=== PATIENT | female | born 1995 | race Caucasian/White ===

== ENCOUNTER → 2024-04-16 13:01 | Outpatient (REF) | payer BC, OTHER, SELFPAY | LOC: PNTC 13:01 | PROVIDERS: ATTENDING PHYSICIAN Obstetrics & Gynecology | DX: O36.60X0 Maternal care for excessive fetal growth, unspecified trimester, not applicable or unspecified (principal); U07.1 COVID-19; O98.519 Other viral diseases complicating pregnancy, unspecified trimester | CPT/HCPCS: 76816 ==

== ENCOUNTER 2024-04-17 14:03 | Observation (INO) | payer BC, OTHER, SELFPAY ==
[2024-04-17 14:38] VITALS: BP 141/89; BMI 32.3
[2024-04-17 14:51] LABS: Hematocrit 32.1 % (37.0-47.0); Hemoglobin 11.4 g/dL (12.0-16.0); Mean Corp Hgb Conc. 35.5 g/dL (33.0-37.0); Mean Corpuscular Hgb 32.6 pg (27.0-31.0); Mean Corpuscular Volume 91.7 fL (81.0-99.0); Mean Platelet Volume 10.1 fL (7.4-10.4); Platelet Count 180 10^3/uL (130-400); Red Cell Dist. Width 12.3 % (11.5-14.5); White Blood Cell Count 11.6 10^3/uL (4.8-10.8)
[2024-04-17 14:59] LABS: ALT (SGPT) 13 U/L (0-35); AST (SGOT) 19 U/L (14-36); Albumin 3.7 g/dl (3.5-5.0); Alkaline Phosphatase 134 U/L (38-126); Blood Urea Nitrogen 10 mg/dl (7-17); Calcium 9.4 mg/dl (8.4-10.2); Carbon Dioxide 16 mmol/L (22-30); Chloride 109 mmol/L (98-107); Estimated Creatinine Clearance > 125 ml/min; Glucose 75 mg/dl (70-99); Sodium 137 mmol/L (135-145); Total Bilirubin 0.2 mg/dl (0.2-1.3); Total Protein 6.5 g/dl (6.3-8.2); eGFR > 60.00
[2024-04-17 15:10] LABS: Urine Albumin Negative (Neg - Trace); Urine Bilirubin Negative (Negative); Urine Character Clear (Clear); Urine Color Yellow; Urine Glucose Negative (Negative); Urine Ketone Negative (Negative); Urine Leukocyte 2+ (Negative); Urine Nitrite Negative (Negative); Urine Occult Blood Negative (Negative); Urine Urobilinogen Negative (Neg - 1+)
[2024-04-17 15:22] LABS: Urine Red Blood Cell 0-2 /HPF (0-2)
[2024-04-17 15:23] LABS: Urine Bacteria Few (Negative); Urine Squamous Cell 26-30 /LPF (Few); Urine White Cell 26-30 /HPF (0-5)
[2024-04-17 15:29] LABS: Protein/creatinine Ratio 0.4; Urine Protein 14 mg/dl
== END 2024-04-17 16:32 | disposition home or self-care (01) ==
LOC: LDRP 14:03
PROVIDERS: ADMITTING PHYSICIAN Obstetrics & Gynecology; ATTENDING PHYSICIAN Obstetrics & Gynecology
DX: O14.03 Mild to moderate pre-eclampsia, third trimester (principal); Z3A.35 35 weeks gestation of pregnancy; O32.1XX0 Maternal care for breech presentation, not applicable or unspecified; Z88.2 Allergy status to sulfonamides
CPT/HCPCS: 59025; 80053; 81003; 81015; 82570; 84156; 85027; G0378

== ENCOUNTER 2024-04-19 10:52 | Observation (INO) | payer BC, OTHER, SELFPAY ==
[2024-04-19 11:04] VITALS: BP 158/91; BMI 32.3
[2024-04-19] MEDS: TYLENOL 1000 MG PO (12:07)
[2024-04-19 12:13] LABS: Hematocrit 30.2 % (37.0-47.0); Hemoglobin 10.8 g/dL (12.0-16.0); Mean Corp Hgb Conc. 35.8 g/dL (33.0-37.0); Mean Corpuscular Hgb 33.1 pg (27.0-31.0); Mean Corpuscular Volume 92.6 fL (81.0-99.0); Mean Platelet Volume 10.1 fL (7.4-10.4); Platelet Count 177 10^3/uL (130-400); Red Blood Cell Count 3.26 10^6/uL (4.20-5.40); Red Cell Dist. Width 12.2 % (11.5-14.5); White Blood Cell Count 10.7 10^3/uL (4.8-10.8)
[2024-04-19 12:24] LABS: ALT (SGPT) 12 U/L (0-35); AST (SGOT) 18 U/L (14-36); Albumin 3.6 g/dl (3.5-5.0); Alkaline Phosphatase 124 U/L (38-126); Blood Urea Nitrogen 10 mg/dl (7-17); Calcium 9.5 mg/dl (8.4-10.2); Carbon Dioxide 19 mmol/L (22-30); Chloride 107 mmol/L (98-107); Estimated Creatinine Clearance > 125 ml/min; Glucose 102 mg/dl (70-99); Potassium 4.1 mmol/L (3.5-5.1); Sodium 137 mmol/L (135-145); Total Bilirubin 0.2 mg/dl (0.2-1.3); Total Protein 6.2 g/dl (6.3-8.2); eGFR > 60.00
== END 2024-04-19 15:41 | disposition home or self-care (01) ==
LOC: LDRP 10:52
PROVIDERS: ADMITTING PHYSICIAN Student in an Organized Health Care Education/Training Program
DX: O14.03 Mild to moderate pre-eclampsia, third trimester (principal); Z3A.36 36 weeks gestation of pregnancy; O99.343 Other mental disorders complicating pregnancy, third trimester; F41.9 Anxiety disorder, unspecified; D35.2 Benign neoplasm of pituitary gland; J45.909 Unspecified asthma, uncomplicated; L40.9 Psoriasis, unspecified; Z88.2 Allergy status to sulfonamides; Z91.410 Personal history of adult physical and sexual abuse; Z86.16 Personal history of COVID-19; Z14.1 Cystic fibrosis carrier
CPT/HCPCS: 59025; 80053; 85027; G0378

== ENCOUNTER → 2024-04-25 11:17 | Outpatient (REF) | payer BC, OTHER, SELFPAY | LOC: PNTC 11:17 | PROVIDERS: ATTENDING PHYSICIAN Student in an Organized Health Care Education/Training Program | DX: O13.3 Gestational [pregnancy-induced] hypertension without significant proteinuria, third trimester (principal) | CPT/HCPCS: 59025; 76815 ==

== ENCOUNTER 2024-04-26 10:42 | Inpatient (IN) | payer BC, OTHER, SELFPAY ==
[2024-04-26 11:28] VITALS: BP 146/90; BMI 32.3
[2024-04-26] MEDS: LR 1000 IV (11:45)
[2024-04-26 12:12] LABS: Hematocrit 33.1 % (37.0-47.0); Hemoglobin 12.1 g/dL (12.0-16.0); Mean Corp Hgb Conc. 36.6 g/dL (33.0-37.0); Mean Corpuscular Hgb 33.5 pg (27.0-31.0); Mean Corpuscular Volume 91.7 fL (81.0-99.0); Mean Platelet Volume 10.1 fL (7.4-10.4); Platelet Count 181 10^3/uL (130-400); Red Blood Cell Count 3.61 10^6/uL (4.20-5.40); Red Cell Dist. Width 12.4 % (11.5-14.5); White Blood Cell Count 10.9 10^3/uL (4.8-10.8)
[2024-04-26 12:32] LABS: ALT (SGPT) 13 U/L (0-35); AST (SGOT) 19 U/L (14-36); Albumin 3.8 g/dl (3.5-5.0); Alkaline Phosphatase 143 U/L (38-126); Blood Urea Nitrogen 8 mg/dl (7-17); Calcium 9.3 mg/dl (8.4-10.2); Carbon Dioxide 17 mmol/L (22-30); Chloride 111 mmol/L (98-107); Estimated Creatinine Clearance > 125 ml/min; Glucose 80 mg/dl (70-99); Potassium 4.2 mmol/L (3.5-5.1); Sodium 138 mmol/L (135-145); Total Bilirubin 0.3 mg/dl (0.2-1.3); Total Protein 6.6 g/dl (6.3-8.2); Uric Acid 5.8 mg/dl (2.5-6.2); eGFR > 60.00
[2024-04-26 12:49] LABS: Urine Albumin Trace (Neg - Trace); Urine Bilirubin Negative (Negative); Urine Character Clear (Clear); Urine Color Yellow; Urine Glucose Negative (Negative); Urine Ketone Negative (Negative); Urine Leukocyte Trace (Negative); Urine Nitrite Negative (Negative); Urine Occult Blood Negative (Negative); Urine Urobilinogen Negative (Neg - 1+)
[2024-04-26] MEDS: CYTOTEC 50 MICROGRAM PO ×2 (13:33→16:59)
[2024-04-26 13:48] LABS: Urine Bacteria Few (Negative); Urine Red Blood Cell 0-2 /HPF (0-2); Urine Squamous Cell >30 /LPF (Few)
[2024-04-26 15:35] LABS: Protein/creatinine Ratio 0.1; Urine Protein 14 mg/dl
[2024-04-26] MEDS: CYTOTEC PO (23:57)
[2024-04-27] MEDS: CYTOTEC 50 MICROGRAM PO ×2 (00:18→09:15)
[2024-04-27] MEDS: CYTOTEC PO ×2 (04:30→07:51)
[2024-04-27] MEDS: FENTANYL/BUPIVACAINE 100 EPIDURAL ×3 (05:59→22:10)
[2024-04-27] MEDS: SUBLIMAZE 100 MCG EPIDURAL (05:59)
[2024-04-27] MEDS: PENICILLIN 110 UNITS IV (08:05)
[2024-04-27] MEDS: PENICILLIN 55 UNITS IV ×4 (12:14→23:59)
[2024-04-27] MEDS: PITOCIN 30 UNITS/NSS 500 ML IV (14:01)
[2024-04-27] MEDS: TUMS CHEWABLE TABLET 200 MG PO (17:42)
[2024-04-28] MEDS: TYLENOL 1000 MG PO (01:07)
[2024-04-28] MEDS: ZITHROMAX INFUSION 250 IV (01:08)
[2024-04-28] MEDS: ANCEF 10 IV (01:08)
[2024-04-28 01:56] LABS: B.E. Cord ABG -3.1 mMOL/L; Cord ABG Comment CORD BLOOD; HCO3 Cord ABG 21.2 mmol/L; O2 Saturation % Cord ABG 73.7 %; PCO2 Cord ABG 35 mmHg; PO2 Cord ABG 33 mmHg; pH Cord ABG 7.39
[2024-04-28 01:58] LABS: Cord ABG Comment CORD BLOOD
[2024-04-28 02:00] LABS: B.E. Cord ABG -4.8 mMOL/L; HCO3 Cord ABG 21.1 mmol/L; O2 Saturation % Cord ABG 66.9 %; PCO2 Cord ABG 41 mmHg; PO2 Cord ABG 31 mmHg; pH Cord ABG 7.32
--- NOTE | 2024-04-28 02:52 | OR.RPT ---
Operative Report
Operative Report
Preop diagnosis: IUP @37.3, preeclampsia without severe features, non-reassuring heart tones
Postop diagnosis: same
Procedure: primary low transverse section
Surgeon: Gómez
Anesthesia: epidural, Corwin
QBL: 550mL
Findings: Viable female infant, weighing 7lb 7oz, with Apgars 8/9. Loose nuchalx1. Normal appearing uterus, bilateral fallopian tubes and ovaries
Healy catheter: clear yellow before and after the procedure
Complications: none
Indication: Patient is a 29yo @37.3 who presented to Labor and Delivery on 04/26 for scheduled primary section for breech presentation. She has preeclampsia without severe features. On admission, fetus was found to be in cephalic
presentation and induction of labor was started with Cytotec. Her cervix at the start of induction was closed/thick/high. She received a total of 4 doses a Cytotec. After Cytotec, she was found to be 1/70/-3. A cook balloon was placed at 1345 on
04/27 with 60/60mL in uterine/vaginal balloons. Pitocin was started. She was on penicillin for GBS prophylaxis. After 6 hours, the cook balloon was in the vagina and she was found to be 5/70/-2. Artificial rupture of membranes was performed for clear
fluid. Following rupture, tachycardia noted and persisted despite position changes. Pitocin was turned off. There was resolution of tachycardia and Pitocin was turned back on and titrated. There was an intermittent category 2 tracing
with occasional variable deceleration. There were then recurrent variable decelerations and Pitocin was turned off. Cervical exam was 6/80/-2 and IUPC was placed. Amnioinfusion was started. There continued to be variable decelerations despite
amnioinfusion with periods of minimal variability. Primary section was recommended for non-reassuring heart tones. Risks, benefits and alternatives were discussed with the patient and all questions were answered. Consent was signed.
Anesthesia notified. 2g of Ancef and 500mg of azithromycin were ordered for antibiotic prophylaxis.
Procedure: Patient was taken to the operating room where epidural anesthesia was bolused and found to be adequate. 2g of Ancef and 500mg of Azithromycin were given for infection prophylaxis. The abdomen was prepped with ChloraPrep. The patient was
draped in the normal sterile fashion. She was placed in the dorsal supine position with a left lateral tilt. A Pfannenstiel incision was made with a 10 blade and carried down to the fascia with a scalpel. Hemostasis achieved with Bovie. The fascia
was incised and dissected laterally with Cheatham scissors. The superior aspect of the fascia was grasped with Umu clamps. The underlying rectus fascia was sharply dissected with the Cheatham scissors. In a similar fashion the inferior aspect of the
fascia was elevated with Umu clamps and the rectus muscle was dissected off with Cheatham scissors. The rectus muscles were down the midline to the level of the pubic symphysis with manual dissection. The peritoneum was bluntly entered and
extended with manual traction.
Leo retractor and bladder blade were placed revealing good visualization of the bladder. The vesicouterine peritoneum was identified. A thin lower uterine segment was noted. The lower uterine segment was incised with a scalpel. Umbilical cord
and body noted with clear amniotic fluid at entry into the uterine cavity. The uterine incision was extended bluntly with lateral and upward traction.
The fetus was in cephalic presentation. The head was elevated out of the pelvis with special attention paid to avoid using the uterine incision as a fulcrum. Gentle fundal pressure was applied one the head was brought to the incision. The head
delivered and the rest of the delivered without difficulty. Delayed cord clamping was performed. The was handed off to the cardio clinician. Cord gases and cord blood was collected. IV oxytocin was started to facilitate uterine
contractions. The placenta was delivered with gentle traction and uterine fundal massage. The uterus was exteriorized. Allis clamps were placed at the apices of the hysterotomy. The inside of the uterus was wiped with a lap sponge to assure complete
removal of placental membranes. Fundal massage was performed and uterus noted to be firm. The uterine incision was closed with 0 Vicryl in a running locked fashion. A horizontal imbricating stitch was done on the hysterotomy. The hysterotomy was
inspected and noted to be hemostatic. The uterus was placed back in the abdomen. Blood clots and fluid were wiped out of the abdomen and pelvis with moist laparotomy sponges. The hysterotomy was examined again and noted to be hemostatic.
The rectus muscles were inspected and noted to be hemostatic. The fascial layer was closed in a running continuous fashion using 0 Vicryl. The subcutaneous tissue was copiously irrigated and any small bleeding vessels were cauterized with Bovie
cautery. The subcutaneous tissue was reapproximated in a running continuous fashion with 2-0 Plain. The skin was closed with 4-0 Vicryl in a subcuticular fashion. There a gap in the skin edges at the left side of the incision. A single interrupted
subcuticular stitch with 4-0 monocryl was used to reapproximate the skin edges. The incision was covered with skin glue. The patient tolerated the procedure well. All sponge and instrument counts were correct times two. The patient was taken to the
recovery room in stable condition.
[2024-04-28] MEDS: TORADOL 15 MG IV ×4 (03:15→21:19)
[2024-04-28] MEDS: ZYRTEC 10 MG PO (08:50)
[2024-04-28] MEDS: PRENATAL PLUS 1 TABLET PO (08:50)
--- NOTE | 2024-04-28 15:18 | W.PN.ANS.POP ---
Anesthesia Post Operative
- Anesthesia Post Op Note
Vital Signs Stable-See Nursing Note: Yes
Airway Patent: Yes
Adequate Pain Control: Yes
Change in Mental Status: No
Current Postoperative Nausea & Vomiting: No
Anesthesia Complications: No
General Anesthetic Recall: No
Unplanned Admission: No
Post Op Hydration Adequate: Yes
[2024-04-28] MEDS: TYLENOL 650 MG PO ×2 (15:49→21:18)
[2024-04-29] MEDS: MOTRIN 600 MG PO ×3 (03:21→15:47)
[2024-04-29] MEDS: TORADOL IV (03:25)
[2024-04-29] MEDS: TYLENOL 650 MG PO ×3 (05:10→15:47)
[2024-04-29 05:40] LABS: Hemoglobin 9.2 g/dL (12.0-16.0); Mean Corp Hgb Conc. 35.4 g/dL (33.0-37.0); Mean Corpuscular Hgb 33.1 pg (27.0-31.0); Mean Corpuscular Volume 93.5 fL (81.0-99.0); Mean Platelet Volume 10.3 fL (7.4-10.4); Platelet Count 155 10^3/uL (130-400); Red Blood Cell Count 2.78 10^6/uL (4.20-5.40); Red Cell Dist. Width 12.5 % (11.5-14.5); White Blood Cell Count 11.5 10^3/uL (4.8-10.8)
[2024-04-29] MEDS: FEOSOL 325 MG PO (07:59)
[2024-04-29] MEDS: PRENATAL PLUS 1 TABLET PO (07:59)
[2024-04-29] MEDS: ZYRTEC 10 MG PO (07:59)
[2024-04-29] MEDS: SENOKOT-S 1 TABLET PO (07:59)
[2024-04-29] MEDS: MYLICON 80 MG PO ×2 (15:55→21:02)
[2024-04-29] MEDS: PERCOCET 5/325 1 TABLET PO (19:25)
[2024-04-30] MEDS: PERCOCET 5/325 1 TABLET PO ×3 (01:00→15:24)
[2024-04-30] MEDS: SENOKOT-S 1 TABLET PO (08:53)
[2024-04-30] MEDS: MOTRIN 600 MG PO ×3 (08:53→20:26)
[2024-04-30] MEDS: MYLICON 80 MG PO (08:53)
[2024-04-30] MEDS: PRENATAL PLUS 1 TABLET PO (08:53)
[2024-04-30] MEDS: ZYRTEC 10 MG PO (08:53)
[2024-04-30] MEDS: FEOSOL 325 MG PO (08:53)
[2024-04-30 11:40] LABS: Syphilis/T. pallidum Ab Reflex Negative (Negative)
[2024-04-30] MEDS: PROCARDIA XL (EXTENDED RELEASE) 30 MG PO (16:44)
[2024-04-30 17:13] LABS: Hemoglobin 9.9 g/dL (12.0-16.0); Mean Corp Hgb Conc. 35.4 g/dL (33.0-37.0); Mean Corpuscular Volume 93.3 fL (81.0-99.0); Mean Platelet Volume 9.7 fL (7.4-10.4); Platelet Count 182 10^3/uL (130-400); Red Cell Dist. Width 12.5 % (11.5-14.5); White Blood Cell Count 9.5 10^3/uL (4.8-10.8)
[2024-04-30 17:27] LABS: ALT (SGPT) 13 U/L (0-35); AST (SGOT) 21 U/L (14-36); Albumin 3.1 g/dl (3.5-5.0); Alkaline Phosphatase 111 U/L (38-126); Blood Urea Nitrogen 11 mg/dl (7-17); Calcium 9.2 mg/dl (8.4-10.2); Carbon Dioxide 21 mmol/L (22-30); Chloride 108 mmol/L (98-107); Estimated Creatinine Clearance > 125 ml/min; Glucose 96 mg/dl (70-99); Potassium 3.8 mmol/L (3.5-5.1); Sodium 137 mmol/L (135-145); Total Bilirubin < 0.1 mg/dl (0.2-1.3); Total Protein 5.6 g/dl (6.3-8.2); eGFR > 60.00
[2024-04-30] MEDS: TYLENOL 650 MG PO (19:37)
[2024-04-30] MEDS: MAGNESIUM SULFATE 100 IV (22:07)
[2024-04-30] MEDS: LR 1000 IV (22:07)
[2024-04-30] MEDS: MAGNESIUM SULFATE 40 GRAM 1000 IV (22:29)
[2024-05-01] MEDS: TYLENOL 650 MG PO ×3 (00:42→18:27)
[2024-05-01] MEDS: MOTRIN 600 MG PO ×3 (04:29→18:28)
[2024-05-01] MEDS: FEOSOL 325 MG PO (08:28)
[2024-05-01] MEDS: PRENATAL PLUS 1 TABLET PO (08:28)
[2024-05-01] MEDS: ZYRTEC PO (08:29)
[2024-05-01] MEDS: SENOKOT-S 1 TABLET PO (08:29)
[2024-05-01] MEDS: TRANDATE 100 MG PO ×2 (09:22→14:21)
[2024-05-01] MEDS: TRANDATE 200 MG PO (19:33)
[2024-05-02] MEDS: TYLENOL 650 MG PO ×2 (00:44→07:57)
[2024-05-02] MEDS: MOTRIN 600 MG PO ×2 (00:45→07:58)
[2024-05-02] MEDS: PRENATAL PLUS 1 TABLET PO (07:58)
[2024-05-02] MEDS: FEOSOL 325 MG PO (08:00)
[2024-05-02] MEDS: TRANDATE 200 MG PO (08:01)
--- NOTE | 2024-05-02 08:22 | W.DS.TRANS ---
DC Summary - Frame Maker
-
Discharge Instructions:
Discharge Diagnosis/Procedures s/p primary low-transverse ; anemia,
asymptomatic; pre-eclampsia with severe features
Diet Regular
Activity No strenuous activity
Driving Restrictions No driving for 2 weeks
Bathing Restrictions OK to Shower
Instructions:
Stand-Alone Forms: LDRP Delivery
LDRP Hypertensive Disorders
Changes to Home Medications: No
Discharge Medications:
DC Medications w/original date entered in [facility] [employer]
cetirizine 10 mg tablet 10 mg PO DAILY Allergies 12/17/12
Vitamin 1 tab PO DAILY Supplement 04/17/24
acetaminophen 325 mg tablet 650 mg (2 x 325 mg) PO Q4HPRN PRN mild pain #0 tabs 05/01/24
ferrous sulfate 325 mg (65 mg iron) tablet (FeroSul) 325 mg PO DAILY #0 tabs 05/01/24
ibuprofen 600 mg tablet 600 mg PO Q6HPRN PRN cramps #60 tabs 05/01/24
labetalol 200 mg tablet 200 mg PO BID #90 tabs 05/01/24
sennosides 8.6 mg-docusate sodium 50 mg tablet 1 tab PO DAILYPRN PRN constipation #0 tabs 05/01/24
oxycodone 5 mg tablet 5 mg PO Q6H PRN severe pain #10 tabs 05/02/24
oxycodone 5 mg tablet 5 mg PO Q6H PRN severe pain #5 tabs 05/02/24
Home Medication Changes
Pending Results: Yes
Additional Pending Results:
placental pathology
Total time spent discharging patient (in min): 25
[2024-05-02] MEDS: ZYRTEC PO (08:55)
== END 2024-05-02 10:27 | disposition home or self-care (01) | DRG 788 ==
LOC: LDRP 10:42
PROVIDERS: Obstetrics & Gynecology; Student in an Organized Health Care Education/Training Program; ADMITTING PHYSICIAN Obstetrics & Gynecology
PROC: 0U7C7ZZ Dilation of Cervix, Via Natural or Artificial Opening (ICD-10-PCS; 2024-04-27)
PROC: 10907ZC Drainage of Amniotic Fluid, Therapeutic from Products of Conception, Via Natural or Artificial Opening (ICD-10-PCS; 2024-04-27)
PROC: 3E0P7VZ Introduction of Hormone into Female Reproductive, Via Natural or Artificial Opening (ICD-10-PCS; 2024-04-27)
PROC: 3E033VJ Introduction of Other Hormone into Peripheral Vein, Percutaneous Approach (ICD-10-PCS; 2024-04-27)
PROC: 10H07YZ Insertion of Other Device into Products of Conception, Via Natural or Artificial Opening (ICD-10-PCS; 2024-04-28)
PROC: 3E0E7GC Introduction of Other Therapeutic Substance into Products of Conception, Via Natural or Artificial Opening (ICD-10-PCS; 2024-04-28)
PROC: 10D00Z1 Extraction of Products of Conception, Low, Open Approach (ICD-10-PCS; 2024-04-28)
DX: O14.14 Severe pre-eclampsia complicating childbirth (principal); O32.1XX0 Maternal care for breech presentation, not applicable or unspecified; O75.0 Maternal distress during labor and delivery; Z3A.37 37 weeks gestation of pregnancy; Z37.0 Single live birth; Z82.49 Family history of ischemic heart disease and other diseases of the circulatory system; Z91.410 Personal history of adult physical and sexual abuse; O69.81X0 Labor and delivery complicated by cord around neck, without compression, not applicable or unspecified; O99.824 Streptococcus B carrier state complicating childbirth; O61.0 Failed medical induction of labor; Z14.1 Cystic fibrosis carrier
CPT/HCPCS: 88307; 36415; 80053; 81003; 81015; 82570; 82803; 84156; 84550; 85027; 86780; 86850; 86900; 86901

== ENCOUNTER → 2024-12-16 16:43 | Outpatient (REF) | payer OTHER, SELFPAY | LOC: RAD 16:43 | PROVIDERS: ATTENDING PHYSICIAN Obstetrics & Gynecology; FAMILY PHYSICIAN Internal Medicine | DX: O26.851 Spotting complicating pregnancy, first trimester (principal) | CPT/HCPCS: 76830; 76856 ==

== ENCOUNTER 2025-03-14 13:10 | Emergency (ER) | payer OTHER, SELFPAY ==
[2025-03-14] VITALS (7 sets, daily range): BP systolic 122–144; BP diastolic 72–100; BMI 35.2
[2025-03-14 13:53] LABS: Hematocrit 41.6 % (37.0-47.0); Hemoglobin 13.9 g/dL (12.0-16.0); Mean Corp Hgb Conc. 33.4 g/dL (33.0-37.0); Mean Corpuscular Volume 92.0 fL (81.0-99.0); Nucleated Red Blood Cells % 0 %; Platelet Count 233 10^3/uL (130-400); Red Cell Dist. Width 12.0 % (11.5-14.5)
[2025-03-14 14:07] LABS: ALT (SGPT) 17 U/L (0-35); AST (SGOT) 21 U/L (14-36); Albumin 4.3 g/dl (3.5-5.0); Alkaline Phosphatase 80 U/L (38-126); Blood Urea Nitrogen 12 mg/dl (7-17); Calcium 9.6 mg/dl (8.4-10.2); Carbon Dioxide 25 mmol/L (22-30); Chloride 105 mmol/L (98-107); Glucose 88 mg/dl (70-99); Potassium 4.1 mmol/L (3.5-5.1); Sodium 137 mmol/L (135-145); Total Protein 7.3 g/dl (6.3-8.2); eGFR > 60.00
[2025-03-14] MEDS: NSS 1000 IV (16:00)
[2025-03-14] MEDS: TYLENOL 650 MG PO (16:05)
[2025-03-14 16:36] LABS: HCG, Serum Qualitative Screen Positive
[2025-03-14 16:59] LABS: Urine Character Clear (Clear)
--- NOTE | 2025-03-14 17:07 | ED.GENMED ---
History of Present Illness
<Eliza Higgins PA-C - Last Filed: 03/15/25 11:45>
General
Chief Complaint: Blood Pressure Problem
Source: patient
Exam Limitations: none
Time Seen by Provider: 03/14/25 15:43
Nursing documentation reviewed up to this point in time: agreed with
History of Present Illness
History of Present Illness:
Patient is a at an estimated 11 weeks gestation who presents to the emergency department with concerns of elevated blood pressure and headache. Patient states that she woke up this morning feeling 'off' states she felt jittery and anxious.
While at work she developed a relatively severe headache. She describes it as a throbbing sensation throughout her head. She went to the nurse and was found to have significantly elevated blood pressures of 160/120. She contacted her [facility]
office who recommended evaluation in the emergency department.
Patient states prior to going to bed last night she felt like she had the flu describing extreme fatigue. She went to bed at 7:30 PM. Patient denies any associated fever or chills. She denies any nausea, vomiting, visual changes, dizziness. No
severe back pain, numbness/tingling or weakness in extremities.
Patient did have preeclampsia with her first , was diagnosed at 36 weeks.
She did have her first OB appointment last week for this however has not yet had an ultrasound.
Past History
<Eliza Higgins PA-C - Last Filed: 03/15/25 11:45>
Past History
ED Past Medical History: Asthma, GERD and Other (Migraines)
ED Past Surgical History: None
Social History
Tobacco: Non-smoker
Alcohol: Occasional
Drug: None
Personal: Single
Living: with family
Family History
Family History: Other (Mother with A. fib, father with MN, uncle with colon cancer, grandfather with pancreatitis)
Review of Systems
<Eliza Higgins PA-C - Last Filed: 03/15/25 11:45>
Review of Systems
Allergies reviewed?: Yes
All Other Systems: ROS reviewed and negative except as documented in HPI and ROS
Phy Exam
<Eliza Higgins PA-C - Last Filed: 03/15/25 11:45>
Physical Exam
Physical Exam:
Vitals: Hypertensive on arrival, improved by my assessment.
General: Patient is well appearing, no acute distress
Skin: Warm and dry, no rashes or lesions
Head: Normocephalic, atraumatic
Eyes: Sclera nonicteric. Pupils equal round reactive to light bilaterally. EOMs intact. No nystagmus.
Throat: Protecting airway
Neck: Normal ROM, no cervical spine tenderness, no meningismus
Cardiac: Regular rate and rhythm, no murmurs.
Pulm: Normal respiratory effort, no wheezes, rales, rhonchi heard on exam
Abdomen: Abdomen soft and nontender.
Extremities: No evidence of cyanosis or edema. Strength 5/5 in bilateral upper and lower extremities
Neuro: AAOx3. CN II-XII grossly intact. No focal neurologic deficits.
Psychiatric: Normal affect.
Course
<Eliza Higgins PA-C - Last Filed: 03/15/25 11:45>
Orders/Labs/Results
Orders:
Orders
03/14/25 13:37
Beta HCG Quantitative Urgent
Is this a screen?: Yes
Comment: ADD ON
Complete Blood Count/With Diff Urgent
Comprehensive Metabolic Panel Urgent
HCG, Serum Qualitative Screen Urgent
03/14/25 15:53
Add On- LAB Urgent
Tests Added?: hcg qualitative
0.9% Sodium Chloride 1000 ml [Nss] 1,000 ml IV BOLUS
Acetaminophen [Tylenol] 650 mg PO NOW STA
03/14/25 16:08
COVID-19 Antigen Urgent
Source: Nasal Swab
Influenza A+B Rapid Molecular Urgent
JESSICA Source: Nasal Swab
Specimen Description:
03/14/25 16:44
Add On- LAB Urgent
Tests Added?: hcg quantitative
03/14/25 16:48
Urinalysis Reflex To Culture Urgent
Date Specimen was Collected: 03/14/25
Time Specimen was Collected: 16:43
Urine Microscopic Reflex Cult Urgent
Urine Culture Urgent
JESSICA Source: U
Specimen Description:
Date Specimen was Collected: 03/14/25
Time Specimen was Collected: 16:43
03/14/25 17:57
CT Head W/o Iv Contrast Urgent
Comment:
Reason For Exam: Headache, HTN
US 1st Trimester Urgent
Comment:
Reason For Exam: Positive Hcg, HTN and severe FENTON
03/14/25 20:09
Amoxicillin 875 mg/Clav 125 mg [Augmentin 875 mg/125 mg] 1 tablet PO NOW STA
Abnormal Lab Results
03/14/25
16:48
Leukocyte Esterase Rfl 3+ A
(Negative)
Urine RBC 3-6 A /HPF
(0-2)
Urine WBC (Reflex) 26-30 A /HPF
(0-5)
Urine Bacteria (Reflex) Moderate A
(Negative)
03/14/25 13:37
03/14/25 13:37
Vital Signs
Initial and Last Documented VS:
Initial Vital Signs
Temp Pulse Resp BP Pulse Ox
98.9 F 94 16 144/100 98
03/14/25 13:24 03/14/25 13:24 03/14/25 13:24 03/14/25 13:24 03/14/25 13:24
Last Documented Vital Signs
Temp Pulse Resp BP Pulse Ox
98.9 F 87 21 122/79 99
03/14/25 13:24 03/14/25 20:15 03/14/25 20:15 03/14/25 20:00 03/14/25 18:00
<Mundo Singh MD - Last Filed: 03/14/25 19:39>
Orders/Labs/Results
Orders:
Orders
03/14/25 13:37
Beta HCG Quantitative Urgent
Is this a screen?: Yes
Comment: ADD ON
Complete Blood Count/With Diff Urgent
Comprehensive Metabolic Panel Urgent
HCG, Serum Qualitative Screen Urgent
03/14/25 15:53
Add On- LAB Urgent
Tests Added?: hcg qualitative
0.9% Sodium Chloride 1000 ml [Nss] 1,000 ml IV BOLUS
Acetaminophen [Tylenol] 650 mg PO NOW STA
03/14/25 16:08
COVID-19 Antigen Urgent
Source: Nasal Swab
Influenza A+B Rapid Molecular Urgent
JESSICA Source: Nasal Swab
Specimen Description:
03/14/25 16:44
Add On- LAB Urgent
Tests Added?: hcg quantitative
03/14/25 16:48
Urinalysis Reflex To Culture Urgent
Date Specimen was Collected: 03/14/25
Time Specimen was Collected: 16:43
Urine Microscopic Reflex Cult Urgent
Urine Culture Urgent
JESSICA Source: U
Specimen Description:
Date Specimen was Collected: 03/14/25
Time Specimen was Collected: 16:43
03/14/25 17:57
CT Head W/o Iv Contrast Urgent
Comment:
Reason For Exam: Headache, HTN
US 1st Trimester Urgent
Comment:
Reason For Exam: Positive Hcg, HTN and severe FENTON
03/14/25 20:09
Amoxicillin 875 mg/Clav 125 mg [Augmentin 875 mg/125 mg] 1 tablet PO NOW STA
Abnormal Lab Results
03/14/25
16:48
Leukocyte Esterase Rfl 3+ A
(Negative)
Urine RBC 3-6 A /HPF
(0-2)
Urine WBC (Reflex) 26-30 A /HPF
(0-5)
Urine Bacteria (Reflex) Moderate A
(Negative)
03/14/25 13:37
03/14/25 13:37
Vital Signs
Initial and Last Documented VS:
Initial Vital Signs
Temp Pulse Resp BP Pulse Ox
98.9 F 94 16 144/100 98
03/14/25 13:24 03/14/25 13:24 03/14/25 13:24 03/14/25 13:24 03/14/25 13:24
Last Documented Vital Signs
Temp Pulse Resp BP Pulse Ox
98.9 F 87 21 122/79 99
03/14/25 13:24 03/14/25 20:15 03/14/25 20:15 03/14/25 20:00 03/14/25 18:00
<Eliza Higgins PA-C - Last Filed: 03/15/25 11:45>
MDM/Problems Addressed
Differential Diagnosis Includes:
Not limited to: Acute dehydration, viral illness, migraine headache, tension headache, hypertensive emergency, etc.
MDM/Problems Addressed:
29-year-old female, , with a history of preeclampsia, presents with elevated blood pressure and headache. She is approximately 11 weeks gestation with previously undocumented IUP. On arrival, blood pressure was 144/100, improving spontaneously
to the 120s/80s by the time of evaluation without intervention. She denies visual changes, focal weakness, or other neurologic symptoms. On exam, patient appears well with no focal deficits and no signs of end-organ dysfunction.
Basic laboratory studies are unremarkable, and viral testing is negative. Urinalysis shows no proteinuria but possible contamination versus infection; plan to treat empirically with antibiotics per [facility] recommendations. Given the severity of the
headache, CT head was obtained after discussion with radiology and [facility]�no acute intracranial findings. Her headache improved with acetaminophen.
Obstetric ultrasound reveals a live intrauterine at approximately 11 weeks gestation with normal heart rate. There is no evidence of end-organ injury. Hypertension is a significant concern w/ history however it has remained within
normal limits since initial measurement with normal labs.
Hypertension likely transient. No current evidence of acute pathology. Headache improved, labs and imaging reassuring. [facility] consulted and will arrange close outpatient follow-up.?Stable for discharge home with return precautions for recurrent
severe headache, visual changes, abdominal pain, or elevated blood pressure. Continue follow-up with [facility] as planned.
Chronic conditions affecting care:
History of preeclampsia
<Eliza Higgins PA-C - Last Filed: 03/15/25 11:45>
*Pulse Oximetry
SaO2: 99
Oxygen Mode of Delivery: Room air
Patient hypoxic: no
*EKG
Interpreted by ED Provider?: NA
*Pesticide Control Inspector Interpretation
Rate: normal
Interpretation: normal
Heart Rate: 78
Rhythm: sinus
*Critical Care Note
Total Time (30-74mins, 75-104mins- exclusive of procedures): Not Applicable
<Eliza Higgins PA-C - Last Filed: 03/15/25 11:45>
Patient Management
Discussion with other providers: Absorption Operator (Case discussed with [facility])
ED Attending Note
<Eliza Higgins PA-C - Last Filed: 03/15/25 11:45>
-
Portions of this chart may have been created with voice recognition software.� Occasional wrong word or��sound alike� substitutions may have occurred due to the inherent limitations of voice recognition software.
<Mundo Singh MD - Last Filed: 03/14/25 19:39>
ED Attending Note
Patient seen and examined by attending physician: Yes
I performed the substantive portion of visit, reviewed & personally made and approve the management plan that is documented in note by myself or BLANCA.: Yes
ED Attending Note:
29-year-old female G3, P1. Presents with onset of headache followed by hypertension. Diastolic blood pressure in the 120s at school. Was not a thunderclap headache but slightly unusual headache for the patient. Headache is generalized across the
top of her head. No visual issues no neurologic symptoms. Patient is 11 weeks . Concern was preeclampsia given the level of blood pressure. She was preeclamptic with her first . This occurred anand and .
On exam patient is nontoxic in no distress.
Blood pressure improved. Speech normal. Nonfocal. No distress. No lower extremity edema.
Impression is unusual headache although not a thunderclap headache with a normal neurologic exam. Blood pressure transiently elevated although now back to a reasonable range. Patient is only 11 weeks which would be too early for preeclampsia. She
has no protein in the urine. Her LFTs are normal. We have discussed with [facility]. Reviewed radiation with radiology and [facility] which would be minimal. Feel a head CT needed to be done to rule out a bleed. Medically stable for discharge and close
follow-up. She will be treated for UTI.
Discharge Plan
Departure
Patient Disposition: Home (Routine Discharge)
Date of Disposition: 03/14/25
Time of Disposition: 20:09
Patient with high blood pressure during this ER visit?: Yes
Condition: Good
Covid-19: Negative COVID-19
Discharge Problem:
Headache, UTI (urinary tract infection)
Instructions: High Blood Pressure (DC), Urinary tract infection in adults - ED (DC), BLOOD PRESSURE
Prescriptions:
New
amoxicillin-pot clavulanate 875-125 mg tablet
1 tab PO BID 5 Days Qty: 10 0RF
Referrals:
Piper Rosenthal MD [Family Provider, Internal Medicine]
Reshma Magaña, DO [Active, Gynecology] - Next open appointment
Activity Restrictions/Additional Instructions:
RETURN TO THE EMERGENCY DEPARTMENT WITH ANY PERSISTENT ELEVATED BLOOD PRESSURES, SEVERE HEADACHE, ABDOMINAL PAIN, VAGINAL BLEEDING, WORSENING CURRENT SYMPTOMS, OR ANY OTHER CONCERNS
- As discussed�your head CT showed no acute abnormalities. Your ultrasound did show an intrauterine of 11 weeks and 4 days with heart rate of 172 bpm.
- As recommended by [facility], we will start you on an antibiotic for a possible UTI. Please take this twice a day for the next 5 days.
- Your blood pressure was elevated upon arrival to the emergency department. Please call your [facility] office tomorrow for prompt follow-up outpatient.
Monitor your symptoms closely and return to the emergency department with any acute worsening/new symptoms or any other concerns
Interventions
Interventions:
*Risk Screen - Suicide Last Done: 03/14/25 13:24
*General Assessment Last Done: 03/14/25 19:35
*Neglect/Abuse Screening Last Done: 03/14/25 13:24
*ED- Fall Risk Assessment Last Done: 03/14/25 16:11
*ED COVID-19 Vaccine History Last Done: 03/14/25 16:11
*ED Influenza Vaccine History Last Done: 03/14/25 16:11
*Nursing Disposition Last Done: 03/14/25 20:38
ED- Cardiac Assessment Last Done: 03/14/25 19:35
ED- Neurological Assessment Last Done: 03/14/25 19:35
ED- Pulmonary Assessment Last Done: 03/14/25 19:35
Discharge Date and Time
Discharge Date/Time: 03/14/25 20:38
Print Language: TAMAZIGHT
[2025-03-14 17:24] LABS: Urine Squamous Cell 16-20 /LPF (Few)
[2025-03-14 17:25] LABS: Urine White Cell 26-30 /HPF (0-5)
[2025-03-14 17:28] LABS: COVID-19 Antigen Negative (Negative)
[2025-03-14 17:37] LABS: Beta HCG Quantitative 62315.00 mIU/ml
--- NOTE | 2025-03-14 19:36 | EDRN ---
Pt 11 weeks G2A0P1. Pt developed a headache this morning around 1100 similar to a migraine. Pt did not take anything for the pain. 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 BP was elevated so pt called her OB who
advised pt come to the ED for evaluation. Pt does not thing tylenol given here helped with headache. No cp, sob, abd pain, n/v/d/c, urinary symptoms, dizziness, weakness, visual disturbance, photophobia.
[2025-03-14] MEDS: AUGMENTIN 875 MG/125 MG 1 TABLET PO (20:21)
== END 2025-03-14 20:38 | disposition home or self-care (01) ==
LOC: EMR 13:10
PROVIDERS: Emergency Medicine; Physician Assistant; EMERGENCY PHYSICIAN Emergency Medicine; FAMILY PHYSICIAN Internal Medicine
DX: O26.891 Other specified pregnancy related conditions, first trimester (principal); O23.41 Unspecified infection of urinary tract in pregnancy, first trimester; R51.9 Headache, unspecified; R53.83 Other fatigue; Z3A.11 11 weeks gestation of pregnancy; R03.0 Elevated blood-pressure reading, without diagnosis of hypertension; Z11.52 Encounter for screening for COVID-19; K21.9 Gastro-esophageal reflux disease without esophagitis; O99.511 Diseases of the respiratory system complicating pregnancy, first trimester; J45.909 Unspecified asthma, uncomplicated; G43.909 Migraine, unspecified, not intractable, without status migrainosus; Z88.2 Allergy status to sulfonamides; Z91.048 Other nonmedicinal substance allergy status
CPT/HCPCS: 99284; 96360; 70450; 76801; 80053; 81003; 81015; 84702; 84703; 85025; 87086; 87502; 87811

== ENCOUNTER → 2025-03-25 06:44 | Outpatient (REF) | payer OTHER, SELFPAY | LOC: PNTC 06:44 | PROVIDERS: ATTENDING PHYSICIAN Student in an Organized Health Care Education/Training Program | DX: Z36.0 Encounter for antenatal screening for chromosomal anomalies (principal); Z36.82 Encounter for antenatal screening for nuchal translucency; O99.211 Obesity complicating pregnancy, first trimester | CPT/HCPCS: 76801; 76813 ==

== ENCOUNTER → 2025-04-21 06:50 | Outpatient (REF) | payer OTHER, SELFPAY | LOC: PNTC 06:50 | PROVIDERS: ATTENDING PHYSICIAN Student in an Organized Health Care Education/Training Program | DX: O99.210 Obesity complicating pregnancy, unspecified trimester (principal); O14.90 Unspecified pre-eclampsia, unspecified trimester; Z86.018 Personal history of other benign neoplasm | CPT/HCPCS: 76805; 93976 ==